=== PATIENT | male | born 1960 | race African-American/Black ===

== ENCOUNTER 2016-12-08 11:29 | Emergency (ER) | payer MEDICAID, OTHER ==
[~2016-12-08] VITALS: Ht 162.6 cm; Wt 87.5 kg
[~2016-12-08 11:29] MED LIST: AMLODIPINE-BEN1 EAC3; CIPROFLOXACIN500 M2 ORAL; CLEOCIN150 MG ORAL; PREDNISONE10 MG ORAL; SILVADENE20 GM TP; TENORMIN25 MG ORAL
[2016-12-08 12:16] VITALS: BP 139/92
[2016-12-08] MEDS ORDERED: IBUPROFEN600 MG ORAL (12:18)
[2016-12-08] MEDS ORDERED: ROBAXIN-750750 MG PO (12:19)
[2016-12-08 12:30] VITALS: BP 139/92
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
== END 2016-12-08 12:30 | disposition home or self-care (01) ==
LOC: EDBD 12:17 → EMR 12:17
DX: M54.2 Cervicalgia (principal); M54.9 Dorsalgia, unspecified; V43.62XA Car passenger injured in collision with other type car in traffic accident, initial encounter; Y92.410 Unspecified street and highway as the place of occurrence of the external cause; Y99.8 Other external cause status
CPT/HCPCS: 99284